=== PATIENT | male | born 1985 | race Caucasian/White ===

== ENCOUNTER 2016-08-21 16:43 | Emergency (ER) | payer MEDICAID ==
--- NOTE | 2016-08-21 17:17 | ED Physician Chart ---
Chief Complaint/HPI - Patient Information Date Seen:: 08/21/16 Time Seen:: 17:16 Chief Complaint:: HAS PAINFUL ABSCESSES IN LT AXILLA X 3 WKS History of Present Illness:: PT FIRST NOTICED PAINFUL LUMPS UNDER HIS LT ARM PIT 3 WKS AGO. PT TRIED TO CLEAN UP THE AREA BY SHAVING. HE HAS HAD SPONTANEOUS DRAINING FROM LT AXILLARY ABSCESSES OVER THIS PAST WEEK. PT RATES THE PAIN GREATER THAN 10/10 AND AND IT IS MADE WORSE BY STRETCHING THE INVOLVED AREA OR TOUCHING THE LUMPS. THE PATIENT DENIES ANY FEVER, CHILLS OR DIAPHORESIS OVER THE PAST 3 WEEKS OR TODAY. Allergies:: Allergies Allergy/AdvReac Type Severity Reaction Status Date / Time No Known Allergies Allergy Verified 08/21/16 16:52 Vitals:: Vital Signs - 8 hr 08/21/16 08/21/16 16:52 17:03 Temp 99.2 F 99.2 F HR 82 RR 16 BP 133/61 O2 Sat % 98 Review of Systems - Review of Systems General/Constitutional: No fever, No chills, No weakness, No edema, No loss of appetite Skin: Skin lesions, Rash, No bruising Head: No headache Eyes: No loss of vision, No diplopia ENT: No earache, No sore throat, No tinnitus Neck: No neck pain, No stiffness, No mass noted Cardio Vascular: No chest pain, No orthopnea, No edema Pulmonary: No SOB, No cough, No wheezing GI: No nausea, No vomiting, No diarrhea, No pain G/U: No dysuria, No frequency, No hematuria Musculoskeletal: Bone or joint pain, No back pain, Muscle pain Psychiatric: Prior psych history, Anxiety, No suicidal ideation, No auditory hallucination, No visual hallucination Hematopoietic: No bruising, Lymphadenopathy Allergic/Immuno: No urticaria, No angioedema Neurological: No syncope, No weakness, No headache, No seizure, No dizziness, No confusion Past Medical History - Past Medical History Past Medical History: No significant medical hx, Other (NO DIABETES, NO HIV, NO HX OF IMMUNE DEFICIENCY) Social History: Smoker, No Alcohol, Illicit Drug Use, Surgical History: None Psychiatricy History: None Family Medical History - Family Member Mother History Unknown: Yes Physical Exam - Physical Examination General/Constitutional: Well-developed, well-nourished, Alert, Non-toxic appearing, Ambulatory Other Gen/Cons comments:: MODERATE TO SEVERE DISTRESS FROM COMPLAINED OF LT AXILLARY PAIN. Head: Atraumatic Eyes: Lids, conjuctiva normal, PERRL, EOMI ENMT: External ears, nose nl, Nasal exam nl, Lips, teeth, gums nl, Oropharynx nl Neck: Nontender, No JVD, No nuchal rigidity, No mass Respiratory: Nl effort/Exclusion, Clear to Auscultation, No Wheeze/Rhonchi/Rales Cardio Vascular: RRR, No murmur, gallop, rubs, NL S1 S2 Other Cardio Vascular comments:: GOOD PULSES IN ALL 4 EXTREMITIES. NO PEPHERIAL EDEMA. : No CVA tenderness Extremities: normal strength in all extremities, No edema Neuro/Psych: Alert/oriented, Normal sensory exam, Judgement/insight normal, Mood normal, Normal gait, No focal deficits Misc: Normal back Labs/Radiology/EKG Results - Lab Results Results: Laboratory Tests 08/21/16 08/21/16 08/21/16 17:55 17:55 17:55 WBC 14.3 H RBC 5.43 Hgb 16.6 Hct 49.4 H MCV 90.8 MCH 30.6 H MCHC Differential 33.7 RDW 12.3 Plt Count 195 MPV 9.4 Neutrophils % 78.4 Lymphocytes % 13.4 L Monocytes % 7.4 Eosinophils % 0.6 Basophils % 0.2 Sodium 136 Potassium 3.7 Chloride 105 Carbon Dioxide 28.5 Anion Gap 6.2 L BUN 14 Creatinine 1.0 Est GFR ( Amer) > 60.0 Est GFR (Non-Af Amer) > 60.0 BUN/Creatinine Ratio 14.0 Glucose 81 Whole Bld Lactic Acid 0.79 Calcium 9.8 CBC WITH LEUKOCYTOSIS CONSISTENT LOCALIZED INFECTION IN LT AXIALLY AREA AND LEVEL OF PAIN. ELECTROLYTES ALL WITHIN NORMAL PARAMETERS. NORMAL RENAL FUNCTION. GLUCOSE AND LACTIC ACID LEVELS. Assessment - Assessment General Assessment: CASE SUMMARY: THIS 31 YEAR OLD MALE PRESENTS WITH ABSCESSES IN THE LT AXILLARY REGION. PAIN ADDRESSED WITH IV MORPHINE (10 MG). REGION PREPPED WITH BETADINE. LOCAL ANESTHESIA WITH 8 CC OF 1% LIDOCAINE. INCISION OVER ADJACENT FLUCTUATED AREAS WITH 11 BLADE. BLUNT DISSECTION WITH MOSQUITO FORCEPS. MODERATE AMOUNT OF PURULENT MATERIAL DRAINED. RUBBER BAND STENT INSERTED AND TIED OFF. PT TOLERATED PROCEDURE WELL. WHILE IN ED RECEIVED 1 GRAM OF IV VANCOMYCIN. D/C WITH 2 RX: NARCO FOR PAIN WITH USUAL PRECAUTIONS (DON'T MIX WITH ETOH AND NO DRIVING OR ACTIVITIES REQUIRING ALERTNESS WITHIN 6 HOURS OF TAKING MEDS. BACTRIM DS BID X 7 DAYS). DISCHARGE IN STABLE CONDITION. MDM DDX LT AXILLARY ABSCESS: NOT CELLULITIS BASED ON EXAMINATION. NOT SEPSIS BASED ON HISTORY, EXAM AND LAB RESULTS. RETURN TO ER IF YOUR SYMPTOMS WORSEN. RETURN IN 7 DAYS FOR REMOVAL OF RUBBER STENT. ED Septic Shock - . Is Septic Shock (SBP<90, OR Lactate>4 mmol\L) present?: No - <6hrs of presentation: Vital Signs: Vital Signs - 8 hr 08/21/16 08/21/16 16:52 17:03 Temp 99.2 F 99.2 F HR 82 RR 16 BP 133/61 O2 Sat % 98 Reassessment (Disposition) - Reassessment Reassessment Condition:: Improved - Diagnosis Diagnosis:: LT AXILARY ABSCESS. - Aftercare/Follow up Instructions Aftercare/Follow-Up Instructions:: Counseled pt regarding lab results/diagnosis & need follow up ED Discharge Plan - Patient Disposition Admit/Discharge/Transfer: PT DISCHARGED HOME Condition at Disposition: Stable Instructions: Abscess
[2016-08-21] MEDS ORDERED: Morphine Sulfate 4 mg/mL 1mL Syr IVP STA (17:50)
[2016-08-21] MEDS ORDERED: Lidocaine 2% Vial 20 mL Vial INJ ONE (17:53)
[2016-08-21] MEDS ORDERED: Sodium Chloride 0.9% 1,000 ML IV SCH (18:00)
[2016-08-21 18:07] LABS: % BASOPHILS 0.2 % (0.0-2.0); % EOSINOPHILS 0.6 % (0.0-5.0); % LYMPHOCYTES 13.4 % (20.0-50.0); % MONOCYTES 7.4 % (2.0-10.0); % NEUTROPHILS 78.4 % (40.0-80.0); HEMATOCRIT 49.4 % (39.0-49.0); HEMOGLOBIN 16.6 gm/dL (13.2-17.3); MEAN CELL VOLUME 90.8 fl (80-99); MEAN CORPUSCULAR HEMOGLOBIN 30.6 pg (26.0-30.0); MEAN CORPUSCULAR HGB CONC 33.7 pg (28.0-36.0); MEAN PLATELET VOLUME 9.4 fl; NEUTROPHILE ABSOLUTE 11.2 Th/cmm (1.8-8.0); PLATELET COUNT 195 Th/cmm (150-400); RED BLOOD COUNT 5.43 Mil/cmm (4.30-5.70); RED CELL DISTRIBUTION WIDTH 12.3 % (11.5-20.0)
[2016-08-21 18:10] LABS: WHITE BLOOD COUNT 14.3 Th/cmm (4.8-10.8)
[2016-08-21 18:22] LABS: ANION GAP 6.2 (7.0-16.0); BUN - UREA NITROGEN 14 mg/dL (7-25); CALCIUM SERUM 9.8 mg/dL (8.6-10.3); CARBON DIOXIDE 28.5 mEq/L (21.0-31.0); CHLORIDE 105 mEq/L (98-107); GLUCOSE 81 mg/dL (70-105); POTASSIUM SERUM 3.7 mEq/L (3.5-5.1); SODIUM SERUM 136 mEq/L (136-145)
== END 2016-08-21 20:29 | disposition home or self-care (01) ==
LOC: ER 16:43
DX: L02.412 Cutaneous abscess of left axilla (principal); F17.200 Nicotine dependence, unspecified, uncomplicated
CPT/HCPCS: 99284; 96365; 96374; 10060; 36415; 83605; 85025; 80048; 87040 ×2; J1885; J2405; J0696; J3370; A4217; J2001; J2270; J7030; Z7502; Z7610